=== PATIENT | female | born 1960 | race Native Hawaiian/Other Pacific Islander ===

== ENCOUNTER 2017-04-10 15:33 | Outpatient (CLI) | payer BC ==
--- NOTE | 2017-04-10 16:43 | Mammography Report ---
BILATERAL DIGITAL SCREENING MAMMOGRAM with CAD: 04/10/17 15:33:00 CLINICAL: Routine screening. COMPARISON:None available. FINDINGS: The breasts are heterogeneously dense, which may obscure small masses. No mass, architectural distortion or suspicious calcifications. IMPRESSION: No mammographic evidence of malignancy. BI-RADS CATEGORY: 1 - - Negative RECOMMENDATION: Routine mammographic screening in one year. COMMENT: Patient follow-up letters are generated by our [employer] application.
== END 2017-04-10 15:34 | disposition home or self-care (01) ==
LOC: SPVWC 15:33
PROVIDERS: ATTEND Obstetrics & Gynecology
DX: Z12.31 Encounter for screening mammogram for malignant neoplasm of breast (principal)
CPT/HCPCS: 77067

== ENCOUNTER 2021-03-09 05:55 | Day surgery (SDC) | payer BC ==
[2021-03-08 10:42] LABS: Hematocrit 38.7 % (30.3-42.9); Hemoglobin 12.6 gm/dl (10.1-14.3); Mean Corpuscular HGB Conc 33 % (30-34); Mean Corpuscular Volume 92 fl (79-97); Platelet Count 276 K/mm3 (140-440); Red Blood Count 4.19 M/mm3 (3.65-5.03); Red Cell Distribution Width 12.9 % (13.2-15.2)
[2021-03-08 11:02] LABS: Blood Urea Nitrogen 13 mg/dL (7-17); Calcium 9.3 mg/dL (8.4-10.2); Hemolysis Index 3
[2021-03-08 11:05] LABS: BUN/Creatinine Ratio 19
[~2021-03-09 05:55] MED LIST: LACTATED RINGERS 1,000 ML ONE
[2021-03-09] MEDS ORDERED: LIDOCAINE MPF (2%) 20 MG/1 ML VIAL 5 ML ONE (07:12)
[2021-03-09] MEDS ORDERED: fentaNYL 100 MCG/2 ML INJ ONE ×2 (07:14→09:26)
[2021-03-09] MEDS ORDERED: propofoL 200 MG/20 ML VIAL IV ONE (07:15)
[2021-03-09] MEDS ORDERED: LIDOCAINE (1%) 10 MG/1 ML VIAL 20 ML MDV ONE (07:28)
[2021-03-09] MEDS ORDERED: BUPIVACAINE/PF (0.5%) 5 MG/1 ML 30 ML VIAL INFILTRATI ONE ×2 (07:28→09:36)
[2021-03-09] MEDS ORDERED: MAGNESIUM OXIDE 400 MG TAB PO NR (07:33)
[2021-03-09] MEDS ORDERED: ONDANSETRON 4 MG/2 ML INJ IV PRN (07:33)
[2021-03-09] MEDS ORDERED: HYDROmorphone 1 MG/1 ML INJ IV PRN ×2 (07:33)
[2021-03-09] MEDS ORDERED: ACETAMINOPHEN 500 MG TAB PO NR (07:34)
--- NOTE | 2021-03-09 07:34 | Anesthesia Day of Surgery ---
Anesthesia Day of Surgery - Day of Surgery Patient Examined: Yes Patient H&P Reviewed: Yes Patient is NPO: Yes
--- NOTE | 2021-03-09 07:35 | Anesthesia Consultation ---
Anesthesia Consult and Med Hx Date of service: 03/09/21 - Airway Anesthetic Teeth Evaluation: Good, Dentures (Upper) ROM Head & Neck: Adequate Mental/Hyoid Distance: Adequate Mallampati Class: Class II Intubation Access Assessment: Good - Pre-Operative Health Status ASA Pre-Surgery Classification: ASA2 Proposed Anesthetic Plan: General - Pulmonary Hx Smoking: No Hx Sleep Apnea: No (CONCHA PRE SCREEN LOW RISK) - Cardiovascular System Hx Hypertension: No - Central Nervous System Hx Psychiatric Problems: No - Gastrointestinal Hx Gastroesophageal Reflux Disease: Yes - Endocrine Hx Thyroid Disease: Yes Hx Hypothyroidism: Yes (DAILY MEDS) - Hematic Hx Anemia: Yes (NOT RECENT) - Other Systems Hx Cancer: No Hx Obesity: No - Additional Comments Anesthesia Medical History Comments: Son present at bedside
[2021-03-09] MEDS ORDERED: ceFAZolin/Water 2 GM/20 ML 2 GM/20 ML SYRINGE IV ONE (07:41)
[2021-03-09] MEDS ORDERED: CELECOXIB 200 MG CAP ONE (07:46)
[2021-03-09] MEDS ORDERED: LACTATED RINGERS 1,000 ML IV SCH (08:00)
[2021-03-09] MEDS ORDERED: MIDAZOLAM 2 MG/2 ML INJ IV NR (08:00)
[2021-03-09] MEDS ORDERED: ceFAZolin/STERILE WATER 2 GM/20 ML SYRINGE IV NR (08:00)
[2021-03-09] MEDS ORDERED: CELECOXIB 200 MG CAP PO NR (08:00)
[2021-03-09] MEDS ORDERED: GABAPENTIN 300 MG CAP PO NR (08:00)
[2021-03-09] MEDS ORDERED: ROCURONIUM 50 MG/5 ML INJ IV ONE (09:25)
[2021-03-09] MEDS ORDERED: ONDANSETRON 4 MG/2 ML INJ ONE (09:25)
[2021-03-09] MEDS ORDERED: dexAMETHasone 20 MG/5 ML VIAL ONE (09:25)
[2021-03-09] MEDS ORDERED: WATER FOR IRRIG STERILE 1,500 ML BOTTLE IR ONE (09:36)
[2021-03-09] MEDS ORDERED: LIDOCAINE (1%) 10 MG/1 ML VIAL 20 ML MDV INFILTRATI ONE (09:36)
[2021-03-09] MEDS ORDERED: NEOSTIGMINE 10MG/10 ML INJ MDV ONE (10:12)
[2021-03-09] MEDS ORDERED: GLYCOPYRROLATE 0.4 MG/2 ML INJ ONE (10:12)
--- NOTE | 2021-03-09 10:43 | Short Stay Summary ---
Short Stay Documentation Date of service: 03/09/21 - History Principal diagnosis: right inguinal hernia H&P: obtained from office - Allergies and Medications Current Medications: Allergies No Known Allergies Allergy (Verified 03/05/21 16:42) Home Medications Medication Instructions Recorded Confirmed Last Taken Type Levothyroxine [Synthroid] 125 mcg PO QAM 03/05/21 03/05/21 03/09/21 05:00 History Omeprazole 20 mg PO PRN PRN 03/05/21 03/05/21 03/09/21 05:00 History Active Medications Acetaminophen (Acetaminophen 500 Mg Tab) 1,000 mg PO ONCE NR Stop: 03/09/21 13:00 Last Admin: 03/09/21 07:45 Dose: 1,000 mg Documented by: Celecoxib (Celecoxib 200 Mg Cap) 400 mg PO PREOP NR Stop: 03/09/21 12:00 Last Admin: 03/09/21 07:45 Dose: 400 mg Documented by: Gabapentin (Gabapentin 300 Mg Cap) 300 mg PO PREOP NR Stop: 03/09/21 20:00 Last Admin: 03/09/21 07:45 Dose: 300 mg Documented by: Hydromorphone HCl (Hydromorphone 1 Mg/1 Ml Inj) 0.25 mg IV Q10MIN PRN PRN Reason: Pain, Moderate (4-6) Stop: 03/09/21 20:00 Hydromorphone HCl (Hydromorphone 1 Mg/1 Ml Inj) 0.5 mg IV Q10MIN PRN PRN Reason: Pain , Severe (7-10) Stop: 03/09/21 23:00 Lactated Ringer's (Lactated Ringers) 1,000 mls @ 125 mls/hr IV DIRECT STUART Last Admin: 03/09/21 06:30 Dose: 125 mls/hr Documented by: Magnesium Oxide (Magnesium Oxide 400 Mg Tab) 400 mg PO ONCE NR Stop: 03/09/21 12:00 Last Admin: 03/09/21 07:45 Dose: 400 mg Documented by: Midazolam HCl (Midazolam 2 Mg/2 Ml Inj) 2 mg IV PREOP NR Stop: 03/09/21 23:59 Last Admin: 03/09/21 08:05 Dose: 2 mg Documented by: - Brief post op/procedure progress note Date of procedure: 03/09/21 Pre-op diagnosis: right inguinal hernia Post-op diagnosis: same Procedure: robotic assisted right inguinal hernia repair with mesh Anesthesia: GETA, local, other (ilioinguinal nerve block Right) Findings: Right indirect inguinal hernia containing moderate amount of incarcerated fat Repaired with medium Right 3D max mesh Surgeon: FREDERICK ORELLANA (Glass Blower Helper: AIYANA Herrera) Estimated blood loss: minimal Pathology: none Condition: stable - Hospital course Hospital course: Pt observed in PACU and discharged to home in stable condition when criteria met - Disposition Condition at discharge: Good Disposition: 01 HOME / SELF CARE / HOMELESS Short Stay Discharge Plan Activity: other (no heavy lifting) Diet: regular Wound: open to air, per your surgeon's advice Additional Instructions: see printed instructions Follow up with: PRIMARY CARE,MD [Primary Care Provider] - 7 Days FREDERICK ORELLANA DO [Staff Physician] - 7 Days Prescriptions: Gabapentin 300 mg PO BID #6 capsule Ibuprofen [Motrin 800 MG tab] 800 mg PO Q8HR PRN #30 tablet PRN Reason: Pain, Moderate (4-6) HYDROcodone/APAP 5-325 [[place] 5/325] 1 each PO Q6HR PRN #20 tablet PRN Reason: Pain , Severe (7-10)
[2021-03-09] MEDS ORDERED: LACTATED RINGERS 1,000 ML ONE (10:50)
[2021-03-09 11:09] VITALS: BP 152/88
--- NOTE | 2021-03-09 13:47 | Post Anesthesia Evaluation ---
- Post Anesthesia Evaluation Patient Participated: Yes Airway Patent: Yes Stable Respiratory Function: Yes Nausea/Vomiting: No Temp > 96.8F: Yes Pain Manageable: Yes Adequeate Hydration: Yes Anesthesia Complications: No Block Receding Appropriately: Not Applicable Patient on Ventilator: No
--- NOTE | 2021-03-09 15:59 | Operative Report ---
Operative Report Operative Report: Date of procedure: 03/09/21 Pre-op diagnosis: right inguinal hernia Post-op diagnosis: same Procedure: robotic assisted right inguinal hernia repair with mesh Anesthesia: GETA, local, other (ilioinguinal nerve block Right) Findings: Right indirect inguinal hernia containing moderate amount of incarcerated fat Repaired with medium Right 3D max mesh Surgeon: FREDERICK ORELLANA (Filleter: AIYANA Herrera) Estimated blood loss: minimal Pathology: none Condition: stable Hospital course: Pt observed in PACU and discharged to home in stable condition when criteria met Condition at discharge: Good Disposition: 01 HOME / SELF CARE / HOMELESS HPI and indication: Patient is a 60-year-old female who was referred by her PCP to the surgery clinic for evaluation of longstanding right groin pain and a bulge. Patient was found to have a right inguinal hernia on physical exam. All pertinent lab and imaging studies were reviewed. It was recommended that the patient undergo repair of the hernia. All risks, benefits, alternatives to surgery were discussed and questions answered. Consent was obtained. Procedure in detail: Patient was identified in the preoperative area, take back to operating room placed on operative table in supine position. After anesthesia was induced both arms were tucked and all bony prominences padded appropriately. A Avina catheter was sterilely placed by the circulating nurse. The abdomen and b/l groins were then prepped and draped in usual sterile fashion and a timeout performed. Local anesthetic was infiltrated to skin at the intended incision sites. A supraumbilical incision was made through which a Veress needle was inserted. Veress needle positioning was confirmed using saline drop test and the abdomen insufflated to 15 mmHg. Once the abdomen was insufflated, the Veress needle was removed and a 5 mm Optiview trocar was placed as incision. The abdomen is inspected there was no underlying injury to any of the abdominal structures. Patient was placed in Trendelenburg and the pelvis examined. There was a right inguinal hernia and no obvious hernia on the left. At this point, an 8 mm right upper quadrant and left upper quadrant robotic trocars were then placed under direct visualization. The 5 mm supraumbilical trocar was removed and replaced with a 12 mm balloon trocar under direct visualization. A Ray-Guilherme was placed into the abdomen. The robot was then docked. A fenestrated bipolar was placed into arm #2 and a monopolar scissor in arm #1. The surgeon was then transferred to the console. First, I created a right sided preperitoneal flap. The peritoneum was scored approximately 5 to 6 cm from the hernia defect. The peritoneum was then incised from the midline to the ASIS. The preperitoneal flap was then developed in an avascular plane. I first defined the medial margin by dissecting to the pubic tubercle. The pubic tubercle was cleared of overlying fatty tissue using blunt dissection. I then created the lateral margin in a similar fashion. Great care was taken to avoid injury to any nerves. There was a direct inguinal hernia and the hernia sac was gently reduced using blunt dissection and transecting cremasteric fibers with electrocautery. A moderate amount of preperitoneal fat was incarcerated in the hernia which was reduced. Once the hernia sac was completely reduced, the peritoneal flap was checked for hemostasis. Any additional cremasteric fibers that were were tenting up the peritoneum were divided. Hemostasis was carefully ensured. The round ligament was left intact. The hernia was repaired using a right medium 3D max mesh. The mesh along with suture material was placed into the abdomen by the operator/assistant foreman. The mesh was positioned into the preperitoneal flap in the usual fashion. The medial portion of the mesh was sutured to Davon's ligament using an interrupted 2-0 Vicryl stitch. The lateral aspect of the mesh was sutured to the anterior lateral a bdominal wall using a 2-0 Vicryl interrupted stitch. The mesh was seen to lay flat in the pocket with excellent coverage. The peritoneum was then reapproximated using 3-0 running V-Loc stitch. The entirety of the mesh was covered with peritoneum. The robot was then undocked and the surgeon scrubbed back in. The remainder of the case was performed laparoscopically. All sharp materials along with a Ray-Guilherme were removed from the abdomen under direct visualization. The 12 mm port was removed and the fascia closed using a interrupted 0 Vicryl stitch. The abdomen was then slowly desufflated and the mesh was seen to lay flat in the preperitoneal space. The remaining trocars were removed. Skin incisions were once again infiltrated with local anesthetic. Right ilioinguinal nerve block was also performed with 5 cc of local anesthetic. The skin incisions were approximated with 4-0 Monocryl subcuticular stitches and skin glue. At the end of the case all sponge, instrument, sharp counts were correct x2. Patient was awoken from anesthesia and Avina catheter removed. The patient was taken to PACU in stable condition.
== END 2021-03-09 05:56 | disposition home or self-care (01) ==
LOC: OR 05:55
PROVIDERS: ATTEND Surgery
DX: K40.30 Unilateral inguinal hernia, with obstruction, without gangrene, not specified as recurrent (principal); D64.9 Anemia, unspecified; K21.9 Gastro-esophageal reflux disease without esophagitis; E03.9 Hypothyroidism, unspecified; Z79.899 Other long term (current) drug therapy; Z98.890 Other specified postprocedural states; Z20.822 Contact with and (suspected) exposure to COVID-19
CPT/HCPCS: 36415; 49650; 80048; 85027; C1781; J0690; J1100; J1815; J2250; J2405; J2704; J2710; J3010; J3490; J7120; S2900; U0003

== ENCOUNTER 2021-05-10 14:30 | Outpatient (CLI) | payer BC ==
--- NOTE | 2021-05-10 17:22 | Mammography Report ---
DEXA BONE DENSITY SCAN INDICATION / CLINICAL INFORMATION: M81.0. 60 years Female COMPARISON: None available. LUMBAR SPINE, L1-L4: - Bone mineral density (BMD) = 0.735 g/cm2. - T-score = -2.7 - Change (%) since most recent prior (if available): None available. LEFT HIP, NECK : - Bone mineral density (BMD) = 0.642 g/cm2. - T-score = -1.9 - Change (%) since most recent prior (if available): None available. IMPRESSION: 1. WHO Classification: Osteoporosis. Fracture Risk: High. 2. 10-Year Fracture Risk (FRAX) = Major Osteoporotic Not reported.% / Hip: Not reported.% FRAX generally not reported for patients with normal or osteoporotic BMD, in mln-otalele-evdcgag virgilio ents younger than age 50, or in patients undergoing pharmacotherapy BMD Reporting Guidelines (ISCD, 2015) BMD Reporting in Postmenopausal Women and in Men Age 50 and Older - T-scores are preferred. - The WHO densitometric classification is applicable. BMD Reporting in Females Prior to Menopause and in Males Younger Than Age 50 - Z-scores, not T-scores, are preferred. This is particularly important in children. - A Z-score of -2.0 or lower is defined as below the expected range for age, and a Z-score above -2.0 is within the expected range for age. - Osteoporosis cannot be diagnosed in men under age 50 on the basis of BMD alone. - The WHO diagnostic criteria may be applied to women in the menopausal transition. http://www.iscd.org/official-positions/8166-gqvw-sklvdhii-positions-adult/ Signer Name: Pavan Patrick MD Signed: 05/10/2021 5:18 PM Workstation Name: [id number]
== END 2021-05-10 14:31 | disposition home or self-care (01) ==
LOC: MAMMO 14:30
PROVIDERS: ATTEND Internal Medicine
DX: M81.0 Age-related osteoporosis without current pathological fracture (principal)
CPT/HCPCS: 77080